=== PATIENT | male | born 1985 | race Caucasian/White ===

== ENCOUNTER 2016-05-24 23:50 | Emergency (ER) | payer OTHER ==
[~2016-05-24] VITALS: Ht 175.3 cm; Wt 72.6 kg
[~2016-05-24 23:50] MED LIST: KEPPRA750 MG PO
[2016-05-24 23:56] VITALS: BP 150/85
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
--- NOTE | 2016-05-25 00:12 | NUR ---
Patient being evaluated by physician DR NOBLES at bedside.
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
--- NOTE | 2016-05-25 00:56 | NUR ---
PATIENT BIB [facility]ICE [facility]. PATIENT EXAMINED BY DR. NOBLES. PATIENT MEDICALLY CLEARED AND RELEASED IN CUSTODY IN STABLE CONDITION. ORIGINAL PRE-BOOK FORM GIVEN TO OFFICER TONIA.
[2016-05-25 00:57] VITALS: BP 137/82
== END 2016-05-25 00:56 ==
LOC: MED 23:50
DX: S40.011A Contusion of right shoulder, initial encounter (principal); V89.2XXA Person injured in unspecified motor-vehicle accident, traffic, initial encounter; Y93.89 Activity, other specified; Y92.411 Interstate highway as the place of occurrence of the external cause; Y99.8 Other external cause status

== ENCOUNTER 2017-10-11 11:18 | Emergency (ER) | payer OTHER ==
[~2017-10-11] VITALS: Ht 172.7 cm; Wt 76.2 kg
[~2017-10-11 11:18] MED LIST changes: -KEPPRA750 MG PO; +LEVE750T3 PO
[2017-10-11 11:24] VITALS: BP 132/74
--- NOTE | 2017-10-11 11:24 | NUR ---
pt to rm 7 via [facility] into [facility] without incident
--- NOTE | 2017-10-11 11:25 | NUR ---
31m sybil from [facility] meeting with c/o witnessed seizure by [facility] personnel. Seizure was described as tonic clonic for approx 2 minutes. Patient sts he ran out of his seizure medication (Keppra unknown amount) 2 days ago. Patient is aox4 to place, person, time, and situation. GCS=15. Oral trauma noted. No urinary/bowel incontinence noted. RR are even and unlabored. NAD. VSS. Patient changed into gown and to cardiac, bp, pulse, and pulse ox monitoring. Awaiting er md gann. Will continue to monitor.
[2017-10-11] MEDS ORDERED: levETIRAcetam 1,000 MG in NACL 0.9% 100 ML IV ONE (11:30)
[2017-10-11 11:51] LABS: BASOPHILS # (AUTO) 0.1 K/uL (0.00-0.22); EOSINOPHILS # (AUTO) 0.4 K/uL (0-0.4); EOSINOPHILS % (AUTO) 3.8 % (0.0-4.0); HEMATOCRIT 48.2 % (36-52); HEMOGLOBIN 16.2 g/dL (12.0-18.0); LYMPHOCYTES # (AUTO) 4.1 K/uL (2.0-11.5); LYMPHOCYTES % (AUTO) 36.1 % (20.5-51.1); MEAN CORPUSCULAR HEMOGLOBIN 31 pg (27-31); MEAN CORPUSCULAR HGB CONC 34 g/dL (33-37); MEAN CORPUSCULAR VOLUME 90.9 fL (80-94); MONOCYTES # (AUTO) 0.7 K/uL (0.8-1.0); MONOCYTES % (AUTO) 5.9 % (1.7-9.3); NEUTROPHILS % (AUTO) 53.2 % (42.2-75.2); PLATELET COUNT (AUTO) 249 K/uL (140-450); RED CELL DISTRIBUTION WIDTH 14.5 % (11.6-13.7); WHITE BLOOD COUNT (AUTO) 11.3 K/uL (4.8-10.8)
[2017-10-11 12:03] LABS: ANION GAP 21.3 (8-16); CARBON DIOXIDE 18.6 mmol/L (21-32); CREATININE 1.1 mg/dL (0.7-1.3); POTASSIUM 3.9 mmol/L (3.5-5.1)
[2017-10-11] MEDS ORDERED: LORazepam 2 MG/ML VIAL IVP ONE (13:00)
[2017-10-11] MEDS ORDERED: KETOROLAC 15 MG/ML VIAL IVP ONE (13:00)
[2017-10-11] MEDS ORDERED: NACL 0.9% 1,000 ML IV ONE (13:05)
[2017-10-11 14:41] VITALS: BP 116/88
--- NOTE | 2017-10-11 14:41 | NUR ---
Patient discharged with v/s stable. Written and verbal after care instructions given and explained. Patient alert, oriented and verbalized understanding of instructions. Ambulatory with steady gait. All questions addressed prior to discharge. ID band removed. Patient advised to follow up with PMD. Rx of ATIVAN AND KEPPRA given. Patient educated on indication of medication including possible reaction and side effects. Opportunity to ask questions provided and answered.
== END 2017-10-11 14:41 | disposition home or self-care (01) ==
LOC: MED 11:18
DX: G40.909 Epilepsy, unspecified, not intractable, without status epilepticus (principal); F10.20 Alcohol dependence, uncomplicated
CPT/HCPCS: 36415; 80048; 85025; 96365; 96375; 99284; J1885; J1953; J2060; J7030